=== PATIENT | male | born 1995 | race African-American/Black ===

== ENCOUNTER 2016-07-29 08:16 | Emergency (ER) | payer OTHER ==
[~2016-07-29] VITALS: Ht 177.8 cm; Wt 70.0 kg
[2016-07-29 08:21] VITALS: TEMP 36.7; Ht 177.8 cm; Wt 70.0 kg
--- NOTE | 2016-07-29 08:56 | DIAGNOSTIC IMAGING REPORT ---
RIGHT WRIST 4 VIEWS HISTORY: Right wrist pain. COMPARISON: None. FINDINGS: Nondisplaced fracture at the ulnar side of the triquetral bone. Dorsal soft tissue swelling. No radiopaque foreign bodies. IMPRESSION: Nondisplaced triquetral bone fracture. Electronically signed by: Efrain Prakash M.D. 07/29/2016 8:54 AM Dictated Date/Time: 07/29/2016 8:53 AM
--- NOTE | 2016-07-29 08:57 | DIAGNOSTIC IMAGING REPORT ---
RIGHT ELBOW 3 VIEWS HISTORY: Right elbow pain. COMPARISON: None. FINDINGS: There is no fracture or dislocation. Soft tissues are unremarkable. No radiopaque foreign bodies. No elbow effusion. IMPRESSION: No fractures. Electronically signed by: Efrain Prakash M.D. 07/29/2016 8:55 AM Dictated Date/Time: 07/29/2016 8:54 AM
[2016-07-29] MEDS ORDERED: HYDR-5688 PO (09:15)
[2016-07-29 09:39] VITALS: BP 99/68; PULSE 97; O2SAT 99
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
== END 2016-07-29 09:37 | disposition home or self-care (01) ==
LOC: C.EDB 08:18 → C.EDA 09:37
DX: S62.114A Nondisplaced fracture of triquetrum [cuneiform] bone, right wrist, initial encounter for closed fracture (principal); M25.521 Pain in right elbow; W22.01XA Walked into wall, initial encounter

== ENCOUNTER → 2016-08-14 | Outpatient (CLI) | payer OTHER ==
[~2016-08-14] MED LIST: HYDR-5688 PO
--- NOTE | 2016-08-14 08:15 | DIAGNOSTIC IMAGING REPORT ---
RIGHT WRIST MIN 3 VIEWS ROUTINE CLINICAL HISTORY: RIGHT WRIST PAIN Right fracture COMPARISON: 07/29/2016 DISCUSSION: Nondisplaced cortical fracture of the triquetral. No significant soft tissue edema. No abnormal depressed reaction or callus formation. Alignment is anatomic. IMPRESSION: Nondisplaced fracture of the triquetral. No change from the prior exam. Electronically signed by: Ignacio Joseph M.D. 08/14/2016 8:14 AM Dictated Date/Time: 08/14/2016 8:13 AM
== END | disposition home or self-care (01) ==
LOC: C.RDSM 13:06
PROVIDERS: ATTEND Family Medicine
DX: S62.114A Nondisplaced fracture of triquetrum [cuneiform] bone, right wrist, initial encounter for closed fracture (principal); X58.XXXA Exposure to other specified factors, initial encounter